=== PATIENT | female | born 1995 | race African-American/Black ===

== ENCOUNTER 2020-12-09 09:19 | Emergency (ER) | payer MEDICAID ==
[~2020-12-09] VITALS: Ht 165.1 cm; Wt 81.0 kg
[2020-12-09 09:27] VITALS: BP 124/78
[2020-12-09] MEDS ORDERED: NITR-87 MT (09:41)
[2020-12-09] MEDS ORDERED: ACETAMINOPHEN 325MG TABLET PO ONE (09:45)
[2020-12-09 10:13] LABS: CLARITY URINE CLOUDY (CLEAR); COLOR URINE YELLOW (YELLOW); KETONES URINE NEGATIVE (NEGATIVE); LEUKOCYTE ESTERASE URINE 3+ (NEGATIVE); NITRITE URINE NEGATIVE (NEGATIVE); OCCULT BLOOD URINE TRACE (NEGATIVE); PH URINE 7.5 (4.5-8.0); PROTEIN URINE NEGATIVE (NEGATIVE); SPECIFIC GRAVITY URINE 1.017 (1.005-1.030)
== END 2020-12-09 10:37 | disposition home or self-care (01) ==
LOC: ER 09:32
DX: N39.0 Urinary tract infection, site not specified (principal); R03.0 Elevated blood-pressure reading, without diagnosis of hypertension; J45.909 Unspecified asthma, uncomplicated
CPT/HCPCS: 81003; 81025; 87077; 87186; 99283

== ENCOUNTER 2021-01-26 19:50 | Emergency (ER) | payer MEDICAID, OTHER ==
[~2021-01-26] VITALS: Ht 165.1 cm; Wt 86.0 kg
[~2021-01-26 19:50] MED LIST: NITR-87 MT
[2021-01-26 21:25] LABS: CLARITY URINE CLOUDY (CLEAR); COLOR URINE YELLOW (YELLOW); KETONES URINE TRACE (NEGATIVE); LEUKOCYTE ESTERASE URINE 3+ (NEGATIVE); NITRITE URINE NEGATIVE (NEGATIVE); OCCULT BLOOD URINE TRACE (NEGATIVE); PROTEIN URINE NEGATIVE (NEGATIVE); SPECIFIC GRAVITY URINE 1.022 (1.005-1.030)
[2021-01-27] MEDS ORDERED: CEPH500C2 MT (00:14)
[2021-01-27] MEDS ORDERED: MICO45CR16 VG (00:14)
[2021-01-27] MEDS ORDERED: CEFTRIAXONE 1 G PREMIX 50 ML IV SCH (00:15)
[2021-01-27 01:00] VITALS: BP 114/65
[2021-01-27] MEDS ORDERED: FLUCONAZOLE 150MG TABLET PO SCH (01:00)
== END 2021-01-27 01:28 | disposition home or self-care (01) ==
LOC: ER 19:50
DX: N39.0 Urinary tract infection, site not specified (principal); B37.9 Candidiasis, unspecified; J45.909 Unspecified asthma, uncomplicated; Z79.899 Other long term (current) drug therapy; Z98.890 Other specified postprocedural states
CPT/HCPCS: 81003; 87210; 87491; 96365; 99284; J0696

== ENCOUNTER 2021-03-04 07:39 | Emergency (ER) | payer MEDICAID ==
[~2021-03-04] VITALS: Ht 165.1 cm; Wt 83.0 kg
[~2021-03-04 07:39] MED LIST changes: +CEPH500C2 MT; +MICO45CR16 VG
[2021-03-04 07:44] VITALS: BP 128/69
[2021-03-04] MEDS ORDERED: HYDROCODONE/ACETAMINOPHEN 5/325MG TABLET PO ONE ×2 (08:15→08:30)
[2021-03-04] MEDS ORDERED: ONDANSETRON 4MG ODT PO ONE (08:15)
[2021-03-04] MEDS ORDERED: IBUP-2029 MT (09:09)
[2021-03-04] MEDS ORDERED: TRAM50TA3 MT (09:09)
== END 2021-03-04 09:33 | disposition home or self-care (01) ==
LOC: ER 07:39
DX: S49.92XA Unspecified injury of left shoulder and upper arm, initial encounter (principal); S59.902A Unspecified injury of left elbow, initial encounter; J45.909 Unspecified asthma, uncomplicated; Z98.890 Other specified postprocedural states; W17.89XA Other fall from one level to another, initial encounter; Y93.89 Activity, other specified; Y92.89 Other specified places as the place of occurrence of the external cause; Y99.8 Other external cause status
CPT/HCPCS: 73030; 73080; 73110; 99284; Q0162; Z7610; A4565

== ENCOUNTER 2021-03-09 10:21 | Emergency (ER) | payer MEDICAID ==
[~2021-03-09] VITALS: Ht 165.1 cm; Wt 82.0 kg
[~2021-03-09 10:21] MED LIST changes: +IBUP-2029 MT; +TRAM50TA3 MT
[2021-03-09] MEDS ORDERED: KETOROLAC 30MG/ML VIAL IV ONE (11:00)
[2021-03-09] MEDS ORDERED: ACETAMINOPHEN 325MG TABLET PO ONE (11:15)
[2021-03-09 11:16] LABS: BASOPHILS % 0.4 % (0.0-2.0); EOSINOPHILS % 1.4 % (0.0-5.0); HEMATOCRIT. 39.6 % (36.0-48.0); HEMOGLOBIN. 13.9 g/dL (12.0-16.0); LYMPHOCYTES % 21.6 % (20.0-50.0); MEAN CORPUSCULAR HEMOGLOBIN 32.4 pg (28.0-32.0); MEAN CORPUSCULAR VOLUME 92.5 fL (81.0-99.0); MEAN PLATELET VOLUME 8.5 fl (7.4-10.4); NEUTROPHILS % 71.6 % (40.0-76.0); PLATELET 249 x1000/uL (130-400); RED BLOOD CELL COUNT 4.28 mill/uL (4.2-5.4); RED CELL DISTRIBUTION WIDTH 13.3 % (11.6-14.6)
[2021-03-09] MEDS: ONDANSETRON HCL 4MG/2ML INJ IV ONE ×2 (11:19→11:23)
[2021-03-09 11:23] LABS: CHLORIDE 109 mEq/L (98-107)
[2021-03-09 11:47] LABS: B-HCG QUANTITATIVE 1072 mIU/mL (<3)
[2021-03-09 13:11] VITALS: BP 104/60
[2021-03-09] MEDS ORDERED: TOPUD PO (13:15)
[2021-03-09 13:24] LABS: CLARITY URINE CLOUDY (CLEAR); COLOR URINE YELLOW (YELLOW); KETONES URINE NEGATIVE (NEGATIVE); LEUKOCYTE ESTERASE URINE TRACE (NEGATIVE); NITRITE URINE NEGATIVE (NEGATIVE); OCCULT BLOOD URINE NEGATIVE (NEGATIVE); PROTEIN URINE NEGATIVE (NEGATIVE); SPECIFIC GRAVITY URINE 1.015 (1.005-1.030); UROBILINOGEN URINE 0.2 E.U./dL (0.2-1.0)
[2021-03-09] MEDS ORDERED: NITR100C PO (13:51)
== END 2021-03-09 14:29 | disposition home or self-care (01) ==
LOC: ER 10:21
DX: O20.0 Threatened abortion (principal); Z3A.01 Less than 8 weeks gestation of pregnancy; O99.321 Drug use complicating pregnancy, first trimester; F12.90 Cannabis use, unspecified, uncomplicated; J45.909 Unspecified asthma, uncomplicated; Z80.41 Family history of malignant neoplasm of ovary
CPT/HCPCS: 36415; 76801; 80053; 81003; 81025; 84702; 85025; 86850; 86900; 86901; 96374; 99284; J2405; Z7610

== ENCOUNTER 2021-03-20 22:17 | Emergency (ER) | payer MEDICAID ==
[~2021-03-20] VITALS: Ht 165.1 cm; Wt 84.0 kg
[~2021-03-20 22:17] MED LIST changes: +NITR100C PO; +TOPUD PO
[2021-03-20 22:43] VITALS: BP 104/63
[2021-03-20] MEDS ORDERED: ACETAMINOPHEN 325MG TABLET PO STA (23:28)
[2021-03-20] MEDS ORDERED: ONDANSETRON HCL 4MG/2ML INJ IV ONE (23:30)
[2021-03-20] MEDS ORDERED: SODIUM CHLORIDE 0.9% 1,000 ML IV ONE (23:30)
[2021-03-20 23:52] LABS: BASOPHILS % 0.5 % (0.0-2.0); EOSINOPHILS % 0.7 % (0.0-5.0); HEMATOCRIT. 41.5 % (36.0-48.0); HEMOGLOBIN. 14.3 g/dL (12.0-16.0); LYMPHOCYTES % 28.9 % (20.0-50.0); MEAN CORPUSCULAR HEMOGLOBIN 31.3 pg (28.0-32.0); MEAN CORPUSCULAR VOLUME 90.7 fL (81.0-99.0); MEAN PLATELET VOLUME 8.3 fl (7.4-10.4); MONOCYTES % 5.8 % (2.0-8.0); NEUTROPHILS % 64.1 % (40.0-76.0); PLATELET 283 x1000/uL (130-400); RED BLOOD CELL COUNT 4.58 mill/uL (4.2-5.4); RED CELL DISTRIBUTION WIDTH 12.9 % (11.6-14.6)
[2021-03-20 23:56] LABS: CHLORIDE 106 mEq/L (98-107)
[2021-03-21] MEDS ORDERED: ONDANSETRON 4MG ODT PO ONE
[2021-03-21 00:21] LABS: B-HCG QUANTITATIVE 31725 mIU/mL (<3)
[2021-03-21] MEDS ORDERED: ONDANSETRON HCL 4MG/2ML INJ IM ONE (00:45)
[2021-03-21 00:51] LABS: CLARITY URINE CLEAR (CLEAR); COLOR URINE YELLOW (YELLOW); KETONES URINE NEGATIVE (NEGATIVE); LEUKOCYTE ESTERASE URINE 2+ (NEGATIVE); NITRITE URINE NEGATIVE (NEGATIVE); OCCULT BLOOD URINE NEGATIVE (NEGATIVE); PH URINE 6.5 (4.5-8.0); PROTEIN URINE NEGATIVE (NEGATIVE); SPECIFIC GRAVITY URINE 1.014 (1.005-1.030)
[2021-03-21] MEDS ORDERED: CEPH500C2 MT (00:56)
[2021-03-21] MEDS ORDERED: ONDA4TAB5 MT (00:56)
[2021-03-21] MEDS ORDERED: PYRI50CA MT (00:56)
[2021-03-21] MEDS ORDERED: CEFTRIAXONE SODIUM 1 G/VIAL IM ONE (01:00)
== END 2021-03-21 01:30 | disposition home or self-care (01) ==
LOC: ER 22:17
DX: O23.41 Unspecified infection of urinary tract in pregnancy, first trimester (principal); O26.91 Pregnancy related conditions, unspecified, first trimester; O26.891 Other specified pregnancy related conditions, first trimester; J45.909 Unspecified asthma, uncomplicated; Z98.890 Other specified postprocedural states; Z79.899 Other long term (current) drug therapy; Z3A.01 Less than 8 weeks gestation of pregnancy; Z91.010 Allergy to peanuts
CPT/HCPCS: 36415; 76801; 80053; 81003; 81025; 84702; 85025; 86850; 86900; 86901; 96372; 99284; J0696; J7030; Q0162

== ENCOUNTER 2021-06-05 22:23 | Emergency (ER) | payer MEDICAID ==
[~2021-06-05] VITALS: Ht 167.6 cm; Wt 82.0 kg
[~2021-06-05 22:23] MED LIST changes: +ONDA4TAB5 MT; +PYRI50CA MT
[2021-06-06] MEDS ORDERED: ACETAMINOPHEN 325MG TABLET PO STA (02:39)
[2021-06-06 02:53] LABS: BASOPHILS % 0.5 % (0.0-2.0); EOSINOPHILS % 1.4 % (0.0-5.0); LYMPHOCYTES % 20.9 % (20.0-50.0); MEAN CORPUSCULAR HEMOGLOBIN 31.5 pg (28.0-32.0); MEAN CORPUSCULAR VOLUME 91.8 fL (81.0-99.0); MEAN PLATELET VOLUME 8.6 fl (7.4-10.4); MONOCYTES % 5.3 % (2.0-8.0); NEUTROPHILS % 71.9 % (40.0-76.0); PLATELET 219 x1000/uL (130-400); RED BLOOD CELL COUNT 3.81 mill/uL (4.2-5.4); RED CELL DISTRIBUTION WIDTH 12.7 % (11.6-14.6)
[2021-06-06 03:00] LABS: CHLORIDE 108 mEq/L (98-107)
[2021-06-06 03:12] LABS: COLOR URINE YELLOW (YELLOW); KETONES URINE NEGATIVE (NEGATIVE); LEUKOCYTE ESTERASE URINE 2+ (NEGATIVE); NITRITE URINE NEGATIVE (NEGATIVE); OCCULT BLOOD URINE 1+ (NEGATIVE); PROTEIN URINE 2+ (NEGATIVE); SPECIFIC GRAVITY URINE 1.008 (1.005-1.030); UROBILINOGEN URINE 0.2 E.U./dL (0.2-1.0)
[2021-06-06 03:16] LABS: CLARITY URINE HAZY (CLEAR)
[2021-06-06 03:26] LABS: B-HCG QUANTITATIVE 5867 mIU/mL (<3)
[2021-06-06] MEDS ORDERED: CEPHALEXIN 250MG CAPSULE PO ONE (04:15)
[2021-06-06] MEDS ORDERED: CEFTRIAXONE 1 G PREMIX 50 ML IV ONE (04:30)
[2021-06-06] MEDS ORDERED: TOPUD MT (04:36)
[2021-06-06] MEDS ORDERED: NITR-87 MT (04:36)
[2021-06-06 05:51] VITALS: BP 98/55
== END 2021-06-06 05:55 | disposition home or self-care (01) ==
LOC: ER 22:23
DX: O23.02 Infections of kidney in pregnancy, second trimester (principal); O26.892 Other specified pregnancy related conditions, second trimester; R10.31 Right lower quadrant pain; J45.909 Unspecified asthma, uncomplicated; Z3A.17 17 weeks gestation of pregnancy; Z79.899 Other long term (current) drug therapy; Z91.010 Allergy to peanuts
CPT/HCPCS: 36415; 76805; 80053; 81003; 84702; 85025; 87077; 87086; 87186; 96365; 99284; J0696

== ENCOUNTER 2022-03-18 17:21 | Emergency (ER) | payer MEDICAID ==
[~2022-03-18] VITALS: Ht 167.6 cm; Wt 84.0 kg
[~2022-03-18 17:21] MED LIST changes: +TOPUD MT
[2022-03-18 22:10] VITALS: BP 124/74
[2022-03-18] MEDS ORDERED: IPRATROPIUM BROMIDE (0.02%) 0.5MG/2.5ML NEB HHN STA (22:25)
[2022-03-18] MEDS ORDERED: PREDNISONE 20MG TABLET PO STA (22:25)
[2022-03-18] MEDS ORDERED: ALBUTEROL (0.083%) 2.5MG/3ML NEB HHN STA (22:25)
[2022-03-18] MEDS ORDERED: ACETAMINOPHEN 325MG TABLET PO ONE (22:30)
[2022-03-18] MEDS ORDERED: CYCLOBENZAPRINE 10MG TABLET PO ONE (22:30)
[2022-03-18] MEDS ORDERED: P20 MT (23:36)
[2022-03-18] MEDS ORDERED: CYCL10TA21 MT (23:36)
[2022-03-18] MEDS ORDERED: ALBU6.7H9 INH (23:36)
== END 2022-03-19 00:27 | disposition home or self-care (01) ==
LOC: ER 17:21
DX: J45.901 Unspecified asthma with (acute) exacerbation (principal); M79.18 Myalgia, other site; J45.909 Unspecified asthma, uncomplicated; Z79.899 Other long term (current) drug therapy
CPT/HCPCS: 71045; 93005; 94640; 99284; J7512; Z7610

== ENCOUNTER 2024-03-18 06:03 | Emergency (ER) | payer MEDICAID, OTHER ==
[~2024-03-18] VITALS: Ht 167.6 cm; Wt 76.0 kg
[~2024-03-18 06:03] MED LIST changes: +ALBU6.7H3 INH; +CYCL10TA21 MT; +P20 MT
[2024-03-18 06:14] VITALS: O2SAT 100
[2024-03-18] MEDS: AMOXICILLIN 500 MG CAPSULE PO ONE (08:15)
[2024-03-18] MEDS: ACETAMINOPHEN 325MG TABLET PO ONE (08:15)
[2024-03-18] MEDS ORDERED: AMOX-494 MT (08:33)
[2024-03-18 08:43] VITALS: BP 113/71; PULSE 71; RESP 17; TEMP 98.8
== END 2024-03-18 08:47 | disposition home or self-care (01) ==
LOC: ER 06:03
DX: H66.91 Otitis media, unspecified, right ear (principal); J45.909 Unspecified asthma, uncomplicated; Z91.010 Allergy to peanuts
CPT/HCPCS: 99283